=== PATIENT | female | born 1975 | race African-American/Black ===

== ENCOUNTER 2017-03-22 04:04 | Emergency (ER) | payer SELFPAY | END 2017-03-22 04:18 | disposition home or self-care (01) | LOC: ERS 04:04 | DX: T63.481A Toxic effect of venom of other arthropod, accidental (unintentional), initial encounter (principal) | CPT/HCPCS: 99283 ==

== ENCOUNTER 2018-10-30 08:53 | Outpatient (CLI) | payer MEDICAID ==
--- NOTE | 2018-10-30 09:26 | MMO ---
Bilateral MAMMO Bilat Screen [facility]. CLINICAL HISTORY: Patient is 43 years old and is seen for screening. The patient has no family history of breast cancer. The patient has no personal history of cancer. The patient has a history of bilateral Excisional Biopsy - hx of lung surgery entered through both lateral b. VIEWS: The views performed were: bilateral craniocaudal; bilateral mediolateral oblique; and bilateral exaggerated craniocaudal. FILMS COMPARED: The present examination has been compared to prior imaging studies performed at [facility] on 06/20/2010, 04/13/2015 and 07/18/2017. This study has been interpreted with the assistance of computer-aided detection. MAMMOGRAM FINDINGS: The breasts are heterogeneously dense, which could obscure a lesion on mammography. There are no suspicious masses, suspicious calcifications, or new areas of architectural distortion. IMPRESSION: THERE IS NO MAMMOGRAPHIC EVIDENCE OF MALIGNANCY. A ROUTINE FOLLOW-UP MAMMOGRAM IN 1 YEAR IS RECOMMENDED. ACR BI-RADS Category 1 - Negative MAMMOGRAPHY NOTE: 1. A negative mammogram report should not delay a biopsy if a dominant of clinically suspicious mass is present. 2. Approximately 10% to 15% of breast cancers are not detected by mammography. 3. Adenosis and dense breasts may obscure an underlying neoplasm.
== END 2018-10-30 08:54 | disposition home or self-care (01) ==
LOC: BICMAMMO 08:53
PROVIDERS: ATTEND Advanced Practice Midwife
DX: Z12.31 Encounter for screening mammogram for malignant neoplasm of breast (principal); Z98.890 Other specified postprocedural states
CPT/HCPCS: 77067

== ENCOUNTER 2018-10-30 09:22 | Outpatient (CLI) | payer MEDICAID ==
--- NOTE | 2018-10-30 10:11 | ULT ---
Exam: Pelvic ultrasound HISTORY: Menorrhagia with heavy menstrual cycles. COMPARISON: None TECHNIQUE: Multiple grayscale and color Doppler images were obtained in a transabdominal and transvag inal pelvic ultrasound. Spectral analysis of the Doppler waveforms of the ovaries were performed. FINDINGS: CERVIX: Nabothian cyst formation is demonstrated. UTERUS: Normal in size without focal abnormality. The uterus does appear to be anteflexed. ENDOMETRIAL STRIPE: 9 mm which is within normal limits for a normal menstruating female patient. No f luid or fluid collection is seen in the endometrial canal. No free fluid is present. RIGHT OVARY: Normal flow, without focal mass. LEFT OVARY:Not visualized. No adnexal mass is seen on the left. IMPRESSION: 1. Normal-appearing uterus and right ovary. 2. Nonvisualization of the left ovary. 3. Endometrial stripe is normal in thickness for patient's age, and no fluid or fluid collection is s een in the endometrial canal.
== END 2018-10-30 09:23 | disposition home or self-care (01) ==
LOC: BICULT 09:22
PROVIDERS: ATTEND Advanced Practice Midwife
DX: Z01.419 Encounter for gynecological examination (general) (routine) without abnormal findings (principal)
CPT/HCPCS: 76856

== ENCOUNTER 2023-02-15 09:44 | Outpatient (CLI) | payer BC | END 2023-02-15 09:45 | disposition home or self-care (01) | LOC: BICMAMMO 09:44 | PROVIDERS: ATTEND Nurse Practitioner Women's Health | DX: Z12.31 Encounter for screening mammogram for malignant neoplasm of breast (principal) | CPT/HCPCS: 77063; 77067 ==